=== PATIENT | male | born 1950 | race Hispanic/Latino ===

== ENCOUNTER 2018-11-04 18:39 | Emergency (ER) | payer MEDICARE ==
[2018-11-04 18:44] VITALS: BMI 24.1
[2018-11-04 18:56] VITALS: TEMP 98.3
--- NOTE | 2018-11-04 18:59 | ED PDOC ---
Arrival/HPI - General Chief Complaint: Male Genitourinary Time Seen by Provider: 11/04/18 18:55 Historian: Patient - History of Present Illness Narrative History of Present Illness (Text): 11/04/18 18:56 68 y/o male, pmh including BPH, nkda, c/o urinary retention x 5 hours. Pt. stated that he is out of flomax for over 2 weeks, thinking he can get off from the flomax, unable to urinate today, no fever or chills, no abdominal or pelvic pain, no palpitation, no numbness or tingling, no other medical or psychological complaints. Past Medical History - Provider Review Nursing Documentation Reviewed: Yes - Infectious Disease Hx of Infectious Diseases: None - Cardiac Hx Cardiac Disorders: Yes Hx Angina: Yes Hx SD: Yes Hx Hypertension: Yes - HEENT Hx HEENT Disorder: No Hx Blind: No Hx Cataracts: No Hx Deafness: No Hx Epistaxis: No Hx Glaucoma: No Hx Macular Degeneration: No - Hematological/Oncological Hx Gum Bleeding: No - Integumentary Hx Cellulitis: No - Musculoskeletal/Rheumatological Hx Falls: No - Genitourinary/Gynecological Other/Comment: BPH - Psychiatric Hx Substance Use: No - Surgical History Hx Abdominal Aortic Aneurysm Repair: No Hx Angiogram: Yes Hx Angioplasty: Yes Hx Cardiac Catheterization: Yes - Anesthesia Hx Anesthesia: No - Suicidal Assessment Feels Threatened In Home Enviroment: No Family/Social History - Physician Review Nursing Documentation Reviewed: Yes Family/Social History: Unknown Family HX Smoking Status: Former Smoker Hx Alcohol Use: Yes Frequency of alcohol use: Socially Hx Substance Use: No Hx Substance Use Treatment: No Allergies/Home Meds Allergies/Adverse Reactions: Allergies No Known Allergies Allergy (Verified 08/07/15 10:14) Home Medications: Home Meds Medication Instructions Recorded Confirmed Losartan/Hydrochlorothiazide 1 tab PO DAILY 07/26/15 08/07/15 [Losartan-Hctz 100-12.5 mg Tab] Review of Systems - Review of Systems Constitutional: absent: Fatigue, Fevers Eyes: absent: Vision Changes ENT: absent: Hearing Changes Respiratory: absent: SOB, Cough Cardiovascular: absent: Chest Pain Gastrointestinal: absent: Abdominal Pain, Nausea, Vomiting Genitourinary Male: Other (+urinary retention) Musculoskeletal: absent: Arthralgias, Back Pain Skin: absent: Rash, Pruritis Neurological: absent: Headache, Dizziness Psychiatric: absent: Anxiety, Depression, Suicidal Ideation Physical Exam Vital Signs Reviewed: Yes Vital Signs Temp Pulse Resp BP Pulse Ox 11/04/18 18:39 98.3 F 103 H 20 125/85 95 Temperature: Afebrile Blood Pressure: Normal Pulse: Tachycardic Respiratory Rate: Normal Appearance: Positive for: Well-Appearing, Non-Toxic, Comfortable Pain Distress: None Mental Status: Positive for: Alert and Oriented X 3 - Systems Exam Head: Present: Atraumatic, Normocephalic Pupils: Present: PERRL Extroacular Muscles: Present: EOMI Conjunctiva: Present: Normal Mouth: Present: Moist Mucous Membranes Neck: Present: Normal Range of Motion Respiratory/Chest: Present: Clear to Auscultation, Good Air Exchange. No: Respiratory Distress, Accessory Muscle Use Cardiovascular: Present: Regular Rate and Rhythm, Normal S1, S2. No: Murmurs Abdomen: Present: Other (+distended bladder). No: Tenderness, Distention, Peritoneal Signs, Rebound, Guarding Back: Present: Normal Inspection. No: CVA Tenderness, Midline Tenderness Upper Extremity: Present: Normal Inspection. No: Cyanosis, Edema Lower Extremity: Present: Normal Inspection. No: Edema Neurological: Present: GCS=15, CN II-XII Intact, Speech Normal Skin: Present: Warm, Dry, Normal Color. No: Rashes Psychiatric: Present: Alert, Oriented x 3, Normal Insight, Normal Concentration Medical Decision Making ED Course and Treatment: 11/04/18 18:58 -Vidales catheter inserted and drained 800cc clear straw color urine, flomax and keflex prophylatic ordered. -Pt. feel relief, request to be discharged home without further evaluation or examination. -Discharge home with keflex, flomax, leg bag, follow up with your own pmd and urologist within 2 days, return to the ER for any new or worsening signs or symptoms. - PA / RAIL MANAGER / Resident Statement MD/DO has reviewed & agrees with the documentation as recorded. Disposition/Present on Arrival - Present on Arrival Any Indicators Present on Arrival: No History of DVT/PE: No History of Uncontrolled Diabetes: No Urinary Catheter: No History of Decub. Ulcer: No History Surgical Site Infection Following: None - Disposition Have Diagnosis and Disposition been Completed?: Yes Diagnosis: Urinary retention Disposition: HOME/ ROUTINE Disposition Time: 18:59 Patient Plan: Discharge Condition: IMPROVED Additional Instructions: -Discharge home with keflex, flomax, leg bag, follow up with your own pmd and urologist within 2 days to have the vidales evaluate and possible removal, return to the ER for any new or worsening signs or symptoms. Prescriptions: Cephalexin [cephalexin] 500 mg PO BID #14 cap Tamsulosin [Flomax] 0.4 mg PO DAILY #14 cap Referrals: Ben Anne MD [Staff Provider] - Follow up with primary Forms: [facility] ([place]), WORK NOTE
[2018-11-04 20:11] VITALS: BP 124/81; PULSE 94; RESP 18; O2SAT 100
== END 2018-11-04 19:55 | disposition home or self-care (01) ==
LOC: ED 18:39
DX: N40.1 Benign prostatic hyperplasia with lower urinary tract symptoms (principal); R33.8 Other retention of urine; I10 Essential (primary) hypertension; Z87.891 Personal history of nicotine dependence

== ENCOUNTER 2018-11-17 07:15 | Emergency (ER) | payer MEDICARE ==
[2018-11-17 07:26] VITALS: BMI 24.8
[2018-11-17 07:30] VITALS: BP 144/73; PULSE 110; RESP 17; TEMP 99; O2SAT 96
--- NOTE | 2018-11-17 07:31 | ED PDOC ---
Arrival/HPI - General Historian: Patient - History of Present Illness Narrative History of Present Illness (Text): 11/17/18 07:39 Patient is a 68 yo male with hypertension who presents with inability to urinate normally and pain with attempted urination. Patient states that he was seen in the ED on 11/04 with the same symptoms. He says that a Orellana was placed, and he was given Keflex and Flomax for UTI and urinary retention. Patient says that symptoms did not improve despite completing the antibiotic course and continuing Flomax. He is specifically complaining of pelvic pressure, dysuria, and dribbling. Patient says he last attempted to urinate at 2AM and it was burning dribbling. He says that he removed the Orellana himself about 3 days ago. He has an appointment with urologist, Dr. Montgomery, next Wednesday (this will be his first appointment). He denies fevers, chills, abdominal pain, back pain, constipation, and diarrhea. He states that he has only has urinary issues/UTIs twice in his life. 11/17/18 07:55 As per medical records, patient had an episode of urinary retention in 2016. He had a Orellana placed and was given Cipro and Flomax. Shahidn removed Orellana on his own at home and was supposed to follow-up with Dr. Drummond. Time/Duration: > week Symptom Onset: Gradual Symptom Course: Worsening Quality: Pressure, Burning <Aisha Velez - Last Filed: 11/17/18 08:30> <Antwan Minaya - Last Filed: 11/17/18 12:50> - General Chief Complaint: Male Genitourinary Time Seen by Provider: 11/17/18 07:21 Past Medical History - Provider Review Nursing Documentation Reviewed: Yes - Infectious Disease Hx of Infectious Diseases: None - Cardiac Hx Cardiac Disorders: Yes Hx Angina: Yes Hx RI: Yes Hx Hypertension: Yes - Pulmonary Hx Respiratory Disorders: No - Neurological Hx Neurological Disorder: No - HEENT Hx HEENT Disorder: No - Renal Hx Renal Disorder: No - Endocrine/Metabolic Hx Endocrine Disorders: No - Hematological/Oncological Hx Blood Disorders: No - Integumentary Hx Dermatological Disorder: No - Musculoskeletal/Rheumatological Hx Musculoskeletal Disorders: No - Gastrointestinal Hx Gastrointestinal Disorders: No - Genitourinary/Gynecological Other/Comment: BPH - Psychiatric Hx Psychophysiologic Disorder: No Hx Substance Use: No - Surgical History Hx Angiogram: Yes Hx Angioplasty: Yes Hx Cardiac Catheterization: Yes - Anesthesia Hx Anesthesia: No - Suicidal Assessment Feels Threatened In Home Enviroment: No <Aisha Velez - Last Filed: 11/17/18 08:30> Family/Social History - Physician Review Nursing Documentation Reviewed: Yes Family/Social History: Unknown Family HX Smoking Status: Former Smoker Hx Alcohol Use: Yes Hx Substance Use: No Hx Substance Use Treatment: No <Aisha Velez - Last Filed: 11/17/18 08:30> Allergies/Home Meds <Aisha Velez - Last Filed: 11/17/18 08:30> <Antwan Minaya - Last Filed: 11/17/18 12:50> Allergies/Adverse Reactions: Allergies No Known Allergies Allergy (Verified 08/07/15 10:14) Home Medications: Home Meds Medication Instructions Recorded Confirmed Losartan/Hydrochlorothiazide 1 tab PO DAILY 07/26/15 08/07/15 [Losartan-Hctz 100-12.5 mg Tab] Review of Systems - Review of Systems Constitutional: absent: Fatigue, Fevers Eyes: Normal ENT: Normal Respiratory: absent: SOB, Cough Cardiovascular: absent: Chest Pain, Palpitations Gastrointestinal: absent: Abdominal Pain, Constipation, Diarrhea, Nausea, Vomiting Genitourinary Male: Dysuria, Urinary Output Changes. absent: Hematuria Musculoskeletal: absent: Arthralgias Skin: absent: Rash, Pruritis, Skin Lesions Neurological: absent: Headache, Dizziness, Focal Weakness Endocrine: absent: Diaphoresis Hemo/Lymphatic: absent: Adenopathy <Aisha Velez - Last Filed: 11/17/18 08:30> Physical Exam Vital Signs Reviewed: Yes Vital Signs Temp Pulse Resp BP Pulse Ox 11/17/18 07:26 99 F 110 H 17 144/73 96 Temperature: Afebrile Blood Pressure: Hypertensive Pulse: Tachycardic Respiratory Rate: Normal Appearance: Positive for: Non-Toxic, Comfortable Pain Distress: None Mental Status: Positive for: Alert and Oriented X 3 - Systems Exam Head: Present: Atraumatic, Normocephalic Pupils: Present: PERRL Extroacular Muscles: Present: EOMI Conjunctiva: Present: Normal Mouth: Present: Moist Mucous Membranes Neck: Present: Normal Range of Motion Respiratory/Chest: Present: Clear to Auscultation, Good Air Exchange Cardiovascular: Present: Normal S1, S2, Tachycardic. No: Irregular Rhythm Abdomen: Present: Tenderness (pelvic), Distention (pelvic fullness), Normal Bowel Sounds Back: Present: Normal Inspection. No: CVA Tenderness Neurological: Present: GCS=15, CN II-XII Intact, Speech Normal Skin: Present: Warm, Dry, Normal Color Psychiatric: Present: Alert, Oriented x 3, Normal Insight, Normal Concentration <Aisha Velez - Last Filed: 11/17/18 08:30> Vital Signs Temp Pulse Resp BP Pulse Ox 11/17/18 07:26 99 F 110 H 17 144/73 96 <Antwan Minaya - Last Filed: 11/17/18 12:50> Medical Decision Making ED Course and Treatment: 11/17/18 07:49 Orellana catheter UA, Urine culture - Lab Interpretations I have reviewed the lab results: Yes <Aisha Velez - Last Filed: 11/17/18 08:30> ED Course and Treatment: 11/17/18 08:11 Patient seen and examined with resident. Patient is 68 year old M with chief complaint of difficult urinating w/dysuria. No CVA tenderness noted on physical exam. - Lab Interpretations Lab Results: Urine Color Yellow (YELLOW) 11/17/18 07:35 Urine Appearance Clear (CLEAR) 11/17/18 07:35 Urine pH 6.0 (4.7-8.0) 11/17/18 07:35 Ur Specific Magnet 1.010 (1.005-1.035) 11/17/18 07:35 Urine Protein Negative mg/dL (<30 mg/dL) 11/17/18 07:35 Urine Glucose (UA) Negative mg/dL (NEGATIVE) 11/17/18 07:35 Urine Ketones Negative mg/dL (NEGATIVE) 11/17/18 07:35 Urine Blood Negative (NEGATIVE) 11/17/18 07:35 Urine Nitrate Negative (NEGATIVE) 11/17/18 07:35 Urine Bilirubin Negative (NEGATIVE) 11/17/18 07:35 Urine Urobilinogen 0.2 E.U./dL (<1 E.U./dL) 11/17/18 07:35 Ur Leukocyte Esterase Negative Brenda/uL (NEGATIVE) 11/17/18 07:35 <Antwan Minaya - Last Filed: 11/17/18 12:50> Disposition/Present on Arrival - Present on Arrival Any Indicators Present on Arrival: No History of DVT/PE: No History of Uncontrolled Diabetes: No Urinary Catheter: No History of Decub. Ulcer: No History Surgical Site Infection Following: None - Disposition Have Diagnosis and Disposition been Completed?: Yes Disposition Time: 08:31 Patient Plan: Discharge <Aisha Velez - Last Filed: 11/17/18 08:30> <MarimarAntwan Faye - Last Filed: 11/17/18 12:50> - Disposition Diagnosis: Urinary retention Disposition: HOME/ ROUTINE Condition: IMPROVED Discharge Instructions (ExitCare): Urinary Retention (DC) Additional Instructions: Follow-up with urologist, Dr. Montgomery, on Wednesday as scheduled. Keep Orellana catheter in until urology instructs otherwise. Continue taking Flomax 0.4 mg daily. Take Cipro 500 mg twice daily for a total of 7 days. Prescriptions: Ciprofloxacin [Cipro] 500 mg PO BID #14 tab Referrals: Terry Montgomery MD [Non-Staff] - Follow up with primary Forms: [employer] ([place])
[2018-11-17 07:54] LABS: URINE BILIRUBIN NEGATIVE (NEGATIVE); URINE BLOOD NEGATIVE (NEGATIVE); URINE GLUCOSE (UA) NEGATIVE (NEGATIVE); URINE LEUKOCYTE ESTERASE NEGATIVE Leu/uL (NEGATIVE); URINE PROTEIN NEGATIVE mg/dL (<30 mg/dL); URINE UROBILINOGEN 0.2 E.U./dL (<1 E.U./dL)
[2018-11-17 07:55] LABS: URINE APPEARANCE CLEAR (CLEAR); URINE COLOR YELLOW (YELLOW)
== END 2018-11-17 08:33 | disposition home or self-care (01) ==
LOC: ED 07:15
DX: N40.1 Benign prostatic hyperplasia with lower urinary tract symptoms (principal); R33.8 Other retention of urine; I10 Essential (primary) hypertension; Z87.891 Personal history of nicotine dependence